=== PATIENT | female | born 1990 | race Caucasian/White ===

== ENCOUNTER 2017-03-31 09:39 | Emergency (ER) | payer MEDICAID, OTHER ==
[~2017-03-31] VITALS: Ht 162.6 cm; Wt 64.0 kg
[2017-03-31 09:52] VITALS: BP 124/71
== END 2017-03-31 15:11 | disposition left against medical advice (07) ==
LOC: ER 09:42
DX: M54.9 Dorsalgia, unspecified (principal); Z53.21 Procedure and treatment not carried out due to patient leaving prior to being seen by health care provider